=== PATIENT | female | born 1940 ===

== ENCOUNTER 2024-02-18 13:45 | Outpatient (AMB) | payer MEDICARE, OTHER, SELFPAY ==
[2024-02-18 14:29] VITALS: BP 150/80; PULSE 88; TEMP 36.6; O2SAT 96; BMI 27.5
--- NOTE | 2024-02-18 14:29 | MHC.OFFWIV ---
Intake Vital Signs 02/18/24 14:29 Height 5 ft 4 in Weight 160 lb BMI 27.5 BP 150/80 H Blood Pressure Location Lt brachial Position Sitting Pulse 88 Pulse Source Pulse Oximeter Temp 97.9 F Temp Source Temporal Artery Scan Pulse Oximetry (%) 96 Oxygen Delivery Method Room Air Intake Visit Reasons: [employer] PNEUMATIC, COUGH, COLD SYMPTOMS Intake Note: pt is here today for cough cold symptoms started 1 week ago Patient Tobacco Use Status: Never used Tobacco Allergies No Known Allergies Allergy (Verified 02/18/24 14:35) Do you need a note to return to daycare/school/sports/work: No HPI HPI Comments History of Present Illness Details 83-year-old female presents today complaining of cough and congestion. She denies fever chills myalgias shortness of breath or chest pain [facility] Social History Patient Tobacco Use Status: Never used Tobacco Review of Systems Const All systems reviewed & are unremarkable except as noted in HPI and below Physical Exam Vital Signs: Last Vital Signs Temp 97.9 F 02/18/24 14:29 Pulse 88 02/18/24 14:29 BP 150/80 H 02/18/24 14:29 Pulse Ox 96 02/18/24 14:29 Oxygen Delivery Method Room Air 02/18/24 14:29 BMI result Body Mass Index 27.5 Const General: healthy appearing and no acute distress HEENT Head: Yes normal to inspection, Yes normocephalic and Yes atraumatic Ears: hearing grossly normal bilaterally, external ears normal, TM's normal bilaterally, TM normal on the right, TM normal on the left and EAC's normal General nose exam: Normal external nose present Face and sinus: Yes normal facial exam and Yes sinuses nontender Throat: Yes posterior oropharynx normal Resp Effort & Inspection: normal respiratory effort Auscultation: wheezes Cardio Rate: regular rate Rhythm: regular rhythm Heart sounds: S1 normal heart sound present and S2 normal heart sound present Assessment & Plan Assessment & Plan (1) Asthmatic bronchitis: Code(s): J45.909 - Unspecified asthma, uncomplicated Plan: The patient was placed on antibiotic and will take prednisone to help control the cough. She will follow up with her PCP. Her son was present for the examination and understands the plan and agrees. Plan See plan Orders: Orders SARS-CoV2/FLU/RSV 02/18/24 R09.89 - Other specified symptoms and signs involving the circulatory and respiratory systems Medications: New doxycycline hyclate 100 mg PO BID 14 caps 0RF 7 days prednisone Take 3 tabs for 3 days, then 2 tabs for 3 days, then 1 tab for 3 days 10 mg PO DIRECTED 20 tabs 0RF Coding Level of Care Code Est Pt Level 3 (33227) Diagnoses Asthmatic bronchitis J45.909
== END 2024-02-18 15:07 | disposition home or self-care (01) ==
PROVIDERS: Visit Provider Physician Assistant Medical
DX: J45.909 Unspecified asthma, uncomplicated (principal)
CPT/HCPCS: 99213

== ENCOUNTER 2024-02-18 15:17 | Outpatient (REF) | payer MEDICARE, SELFPAY ==
[2024-02-18 19:05] LABS: Influenza A PCR NEGATIVE (Negative); Influenza B PCR NEGATIVE (Negative); Resp Syncy Virus RNA Qual PCR NEGATIVE (Negative); SARS COV2 PCR INHOUSE NEGATIVE (Negative)
== END 2024-02-18 15:18 | disposition home or self-care (01) ==
LOC: HO.LAB 15:17
PROVIDERS: Visit Provider Physician Assistant Medical
DX: R09.89 Other specified symptoms and signs involving the circulatory and respiratory systems (principal)
CPT/HCPCS: 0241U